=== PATIENT | male | born 1985 | race Caucasian/White ===

== ENCOUNTER 2020-08-24 22:38 | Emergency (ER) | payer SELFPAY ==
[~2020-08-24] VITALS: Ht 180.3 cm; Wt 81.8 kg
[2020-08-25 02:12] VITALS: BP 115/72
--- NOTE | 2020-08-25 03:23 | RAD ---
Three-view left ankle and 2 views os calcis dated 08/25/2020. No comparison available. CLINICAL INDICATION: Pain. FINDINGS: 3 views of left ankle and 2 views os calcis show deformity of the calcaneus with partial fusion of po sterior subtalar joint. There is some radiolucent defects within the calcaneal tuberosity the probabl y related to prior surgery. No bone destruction. Marked degenerative change of the subtalar joints th roughout. There is mild degenerative change of the tibiotalar joint. The distal tibia and fibular intact. No ev idence of fracture. No osteochondral defect of the talar dome. IMPRESSION: 1. Deformity of the calcaneus with partial fusion of the posterior subtalar joint, likely related to prior surgery and subtalar joint effusion. Correlate clinically. 2. No evidence of fracture or acute findings. 3. Degenerative changes as above. Electronically signed by: Lyle Hunt MD (08/25/2020 3:21 AM) CAT
--- NOTE | 2020-08-25 04:42 | PHYS DOC ---
General Adult EDM: Chief Complaint: FOOT INJURY PAIN HPI: HPI: 35-year-old male past medical history significant for left achilles tendon injury with left calcaneal fracture after patient fell from 2 stories in 2014 (required 2 surgeries w/hardware and hardware removal), presents the ED with complaints of left heel pain after pt was in his bathroom, slipped and either hit his heel on toilet basin or the tub. He is able to bear weight on the front part of his foot but given prior injury wanted to be assessed for repeat fracture. Denies any alcohol or intoxication. Did not hit his head or lose consciousness. Does not take any routine medications. Is here with his girlfriend who consents to her knowledge of his medical information. Review of Systems: Review of Systems: Constitutional: Denies fever or chills. [] Eyes: Denies change in visual acuity. [] HENT: Denies nasal congestion or sore throat. [] Respiratory: Denies cough or shortness of breath. [] Cardiovascular: Denies chest pain or edema. [] GI: Denies abdominal pain, nausea, vomiting, : Denies saddle anesthesia, urine or bowel retention or incontinence Musculoskeletal: Denies back pain or CVA tenderness Integument: Denies rash or diaphoresis Neurologic: Denies headache, neck pain, focal weakness or sensory changes. [] Psychiatric: Denies depression or anxiety. [] Heart Score: C/O Chest Pain: No Risk Factors: Risk Factors: DM, Current or recent (<one month) smoker, HTN, HLP, family history of CAD, obesity. Risk Scores: Score 0 - 3: 2.5% MACE over next 6 weeks - Discharge Home Score 4 - 6: 20.3% MACE over next 6 weeks - Admit for Clinical Observation Score 7 - 10: 72.7% MACE over next 6 weeks - Early Invasive Strategies Physical Exam: PE: Constitutional: Well developed, well nourished, no acute distress, non-toxic appearance. HENT: Normocephalic, atraumatic, Eyes: EOMI, conjunctiva normal, no discharge. Neck: Normal range of motion, supple, Cardiovascular: S1/2 present, regular rhythm Lungs & Thorax: Speaking in full sentences, bilateral equal chest rise, no tachypnea or increased work of breathing Skin: Warm, dry, Back: No midline tenderness or pain Extremities: No tenderness, no cyanosis, no lower extremity edema-no focal swelling or deformity Neurologic: Alert and oriented X 3, normal motor function, normal sensory function, no focal deficits noted, pain over posterior heel with bunion/hard dry built up skin tear (1x1cm) with no abrasion/bleeding or skin break, patient's foot stuck in plantar flexion, pain worsens with dorsiflexion, no pain over fibular head, knee or hip, bilateral distal pulses intact, Psychologic: Affect normal, judgement normal, mood normal. [] EKG: EKG: [] Radiology/Procedures: Radiology/Procedures: []IMAGING REPORT Signed PATIENT: MARIANNE MCGHEE ACCOUNT: [id number] : 1985 LOCATION: ER AGE: 35 SEX: M EXAM STATUS: REG ER ORD. PHYSICIAN: WOLF VELARDE DO REASON: heel pain s/p blun tuinjry PROCEDURE: CALCANEUS LEFT Three-view left ankle and 2 views os calcis dated 08/25/2020. No comparison available. CLINICAL INDICATION: Pain. FINDINGS: 3 views of left ankle and 2 views os calcis show deformity of the calcaneus with partial fusion of posterior subtalar joint. There is some radiolucent defects within the calcaneal tuberosity the probably related to prior surgery. No bone destruction. Marked degenerative change of the subtalar joints throughout. There is mild degenerative change of the tibiotalar joint. The distal tibia and fibular intact. No evidence of fracture. No osteochondral defect of the talar dome. IMPRESSION: 1. Deformity of the calcaneus with partial fusion of the posterior subtalar joint, likely related to prior surgery and subtalar joint effusion. Correlate clinically. 2. No evidence of fracture or acute findings. 3. Degenerative changes as above. Electronically signed by: Lyle Hunt MD (08/25/2020 3:21 AM) [facility] DICTATED and SIGNED BY: LYLE HUNT MD DATE: 08/25/20 [id number] Course & Med Decision Making: Course & Med Decision Making Pertinent Labs and Imaging studies reviewed. (See chart for details) Lengthy ED stay due to high volume in ED, acuity of critical pts and ED staffing. Concern for blunt injury to the left posterior heel, with no skin break or signs of trauma. No deformity. Patient explains his surgery required hardware to refuse his calcaneus and they had to shorten his Achilles tendon and reattach it (last surgery was 2014). Patient not in any significant distress. Recommend repeat imaging if pain should persist. Splint and crutches offered, patient declined-states he is able to bear weight and walk on his left toes. RICE instructions and [id number] analgesia recommended. Patient reports range of motion is at baseline prior to blunt injury earlier tonight-is unable to completely dorsiflex his foot, per parents plantarflexion. Will discharge home with strict ED return precautions were given for severe pain, neurologic deficits, skin color changes or repeat injury. Encouraged urgent outpatient follow-up with PMD and orthopedic surgery for definitive management. Life- threatening processes were considered but are low suspicion at this time, given history, physical exam and ED workup. Pt was educated on all prescription medications and adverse effects. All patient's questions were answered and pt was stable at time of discharge. Life/limb-threatening differential includes but is not limited to, avascular necrosis, septic arthritis, malignancy, compartment syndrome, fracture/ligamentous injury/overuse, decompression sickness, seronegative spondyloarthropathies, trauma including dislocation/fracture, Lyme disease, lupus, arthritis differentials, gout/pseudogout or decompression sickness. I spoken with the patient and her caregivers. I explained the patient's condition, diagnoses and treatment plan based on the information available to me at this time. I have answered the patient and her caregiver's questions and addressed any concerns. The patient and her caregivers have a good understanding of patient's diagnosis, condition and treatment plan as can be expected at this point. Vital signs have been stable. Patient's condition is stable and appropriate for discharge from the emergency department. Patient will pursue further outpatient evaluation with primary care physician or other designated or consulting physician as outlined in the discharge instructions. The patient and/or caregivers are agreeable to this plan of care and follow-up instructions have been explained in detail. The patient and/or caregivers have received these instructions in written form and have expressed an understanding of the discharge instructions. The patient and/or caregivers are aware that any significant change of condition or worsening of symptoms should prompt immediate return to this or the closest emergency department or call to Shawn Yang Disclaimer: Yang Disclaimer: This electronic medical record was generated, in whole or in part, using a voice recognition dictation system. Departure Departure Impression: Primary Impression: Pain of left heel Disposition: HOME / SELF CARE / HOMELESS Condition: STABLE Referrals: NO PCP (PCP) Follow-up with your primary care physician or FOLLOW UP WITH FAMILY MEDICINE: Family Medicine Address: [address] [place] [address] Patient Instructions: Ankle Pain, RICE - Routine Care for Injuries Additional Instructions: FOLLOW UP WITH ORTHOPEDICS: Orthopaedic Sports Medicine Orthopaedic Surgery [facility] Orthopedics Address: [address], [address] [place] [address] EMERGENCY DEPARTMENT GENERAL DISCHARGE INSTRUCTIONS Thank you for coming to [facility] Emergency Department (ED) today and trusting us with you care. We trust that you had a positive experience in our Emergency Department. If you wish to speak to the department management, you may call the Director at [phone]. YOUR FOLLOW UP INSTRUCTIONS ARE FOLLOWS: 1. Do you have a private Doctor? If you do not have a private doctor, please ask for a resource list of physicians or clinics that may be able to assist you with follow up care. 2. The Emergency Physicain has interpreted your x-rays. The X-Ray specialist will also review them. If there is a change in the findings, you will be notified in 48 hours when at all possible. 3. A lab test or culture has been done, your results will be reviewed and you will be notified if you need a change in treatment. ADDITIONAL INSTRUCTIONS AND INFORMATION: 1. Your care today has been supervised by a physician who is specially trained in emergency care. Many problems require more than one evaluation for a complete diagnosis and treatment. We recommend that you schedule your follow up appointment as recommended to ensure complete treatment of you illness or injury. If you are unable to obtain follow up care and continue to have a problem, or if your condition worsens, we recommend that you return to the ED. 2. We are not able to safely determine your condition over the phone nor are we able to give sound medical advice over the phone. For these safety reasons, if you call for medical advice we will ask you to come to the ED for further evaluation. 3. If you have any questions regarding these discharge instructions please call the ED at [phone]. SAFETY INFORMATION: In the interest of safety, wellness, and injury prevention; we encourage you to wear your sealbelt, if you smoke; quite smoking, and we encourage family to use a protective helmet for bicycling and other sporting events that present an increased risk for head injury. IF YOUR SYMPTOMS WORSEN OR NEW SYMPTOMS DEVELOP, OR YOU HAVE CONCERNS ABOUT YOUR CONDITION; OR IF YOUR CONDITION WORSENS WHILE YOU ARE WAITING FOR YOUR FOLLOW UP APPOINTMENT; EITHER CONTACT YOUR PRIMARY CARE DOCTOR, THE PHYSICIAN WHOSE NAME AND NUMBER YOU WERE GIVEN, OR RETURN TO THE ED IMMEDIATELY. [facility] DO Aug 25, 2020 04:42
== END 2020-08-25 04:46 | disposition home or self-care (01) ==
LOC: ER 22:38
DX: M79.672 Pain in left foot (principal)
CPT/HCPCS: 73610; 73650; 99284

== ENCOUNTER 2020-11-02 13:20 | Emergency (ER) | payer SELFPAY ==
[~2020-11-02] VITALS: Ht 177.8 cm; Wt 75.0 kg
[2020-11-02 13:35] VITALS: BP 137/82
[2020-11-02] MEDS ORDERED: MORPHINE SULFATE 4 MG/ML INJ. IV/SQ PRN (13:45)
[2020-11-02 14:20] LABS: BASO # 0.1 x10^3/uL (0.0-0.2); BASO % 1 % (0-3); EOS # 0.1 x10^3/uL (0.0-0.7); EOS % 1 % (0-3); HEMATOCRIT 40.4 % (39.0-53.0); HEMOGLOBIN 13.8 g/dL (13.0-17.5); LYMPH # 2.3 x10^3/uL (1.0-4.8); LYMPH % 20 % (24-48); MEAN CORPUSCULAR HEMOGLOBIN 31 pg (25-35); MEAN CORPUSCULAR HGB CONC 34 g/dL (31-37); MEAN CORPUSCULAR VOLUME 91 fL (79-100); MONO # 0.9 x10^3/uL (0.0-1.1); MONO % 7 % (0-9); NEUT # 8.6 x10^3/uL (1.8-7.7); NEUT % 72 % (31-73); PLATELET COUNT 274 x10^3/uL (140-400); RED BLOOD COUNT 4.45 x10^6/uL (4.30-5.70); RED CELL DISTRIBUTION WIDTH 13.6 % (11.5-14.5)
--- NOTE | 2020-11-02 14:24 | RAD ---
EXAMINATION: XR FOOT_LEFT 3 VIEWS CLINICAL HISTORY: pain redness in heel region, hx of surgery on heel/achilles TECHNIQUE: XR FOOT_LEFT 3 VIEWS Number of Images/Views: 3 COMPARISON: None FINDINGS: Postoperative changes in the calcaneus. Subtalar degenerative changes. Pes planus. No acute fracture. No focal soft tissue swelling. IMPRESSION: Postoperative and degenerative changes in the hindfoot as described. Electronically signed by: Satya Rosa DO (11/02/2020 2:22 PM) BRANDEN
[2020-11-02 14:32] LABS: CALCIUM 8.9 mg/dL (8.5-10.1); CREATININE 1.1 mg/dL (0.7-1.3); GFR 75.3
[2020-11-02 14:38] LABS: ALBUMIN 3.8 g/dL (3.4-5.0); ALBUMIN/GLOBULIN RATIO 1.2 (1.0-1.7); TOTAL BILIRUBIN 0.3 mg/dL (0.2-1.0); TOTAL PROTEIN 6.9 g/dL (6.4-8.2)
[2020-11-02] MEDS ORDERED: DICL50TA2 PO (15:45)
[2020-11-02] MEDS ORDERED: CEPH500T PO (15:45)
[2020-11-02] MEDS ORDERED: SULF1TAB24 PO (15:45)
--- NOTE | 2020-11-02 15:46 | PHYS DOC ---
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 Patient states he had hardware placed in the left foot then later the hardware was r emoved after he developed osteomyelitis 2015. Patient states since this morning he has noted some redness around the left heel. He is complaining of 10 out of 10 heel pain radiating to the Achilles tendon. Patient denies any injuries. States the pain is worse on touching the heel. Denies any fever. 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 [] Eyes: Denies change in visual acuity. [] HENT: Denies nasal congestion or sore throat. [] Respiratory: Denies cough or shortness of breath. [] Cardiovascular: Denies chest pain or edema. [] GI: Denies abdominal pain, nausea, vomiting, bloody stools or diarrhea. [] : Denies dysuria. [] Musculoskeletal: Denies back pain or joint pain. [] Integument: Reports left heel pain radiating to the Achilles tendon Neurologic: Denies headache, focal weakness or sensory changes. [] Psychiatric: Denies depression or anxiety. 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 [] HENT: Normocephalic, atraumatic, bilateral external ears normal, oropharynx moist, no oral exudates, nose normal. [] Eyes: PERRLA, EOMI, conjunctiva normal, no discharge. [] Neck: Normal range of motion, no tenderness, supple, no stridor. [] Cardiovascular:Heart rate regular rhythm, no murmur [] Lungs & Thorax: Bilateral breath sounds clear to auscultation [] Abdomen: Bowel sounds normal, soft, no tenderness, no masses, no pulsatile masses. [] Skin: See extremity Back: No tenderness, no CVA tenderness. [] Extremities: Left lower extremity with no obvious deformity. Left heel noted for from the region consistent with calluses. There is an old healed surgical incision noted on the medial left heel. Just below the surgical incision there is some erythema concerning for superficial cellulitis. The area is tender to touch over. Patient able to flex and extend the left foot with no difficulties. Negative Louise sign. +2 left pedal pulse. Cap refill less than 2 seconds to left toes Neurologic: Alert and oriented X 3, normal motor function, normal sensory function, no focal deficits noted. [] Psychologic: Affect normal, judgement normal, mood normal. [] (KEYLA SHAH M STEM PROCESSING MACHINE OPERATOR) Current Patient Data: Labs: Laboratory Tests Test 11/02/20 14:10 White Blood Count 12.0 x10^3/uL (4.0-11.0) H Red Blood Count 4.45 x10^6/uL (4.30-5.70) Hemoglobin 13.8 g/dL (13.0-17.5) Hematocrit 40.4 % (39.0-53.0) Mean Corpuscular Volume 91 fL (79-100) Mean Corpuscular Hemoglobin 31 pg (25-35) Mean Corpuscular Hemoglobin Concent 34 g/dL (31-37) Red Cell Distribution Width 13.6 % (11.5-14.5) Platelet Count 274 x10^3/uL (140-400) Neutrophils (%) (Auto) 72 % (31-73) Lymphocytes (%) (Auto) 20 % (24-48) L Monocytes (%) (Auto) 7 % (0-9) Eosinophils (%) (Auto) 1 % (0-3) Basophils (%) (Auto) 1 % (0-3) Neutrophils # (Auto) 8.6 x10^3/uL (1.8-7.7) H Lymphocytes # (Auto) 2.3 x10^3/uL (1.0-4.8) Monocytes # (Auto) 0.9 x10^3/uL (0.0-1.1) Eosinophils # (Auto) 0.1 x10^3/uL (0.0-0.7) Basophils # (Auto) 0.1 x10^3/uL (0.0-0.2) Sodium Level 140 mmol/L (136-145) Potassium Level 4.0 mmol/L (3.5-5.1) Chloride Level 103 mmol/L (98-107) Carbon Dioxide Level 30 mmol/L (21-32) Anion Gap 7 (6-14) Blood Urea Nitrogen 15 mg/dL (8-26) Creatinine 1.1 mg/dL (0.7-1.3) Estimated GFR (Cockcroft-Gault) 75.3 BUN/Creatinine Ratio 14 (6-20) Glucose Level 64 mg/dL (70-99) L Lactic Acid Level 1.3 mmol/L (0.4-2.0) Calcium Level 8.9 mg/dL (8.5-10.1) Total Bilirubin 0.3 mg/dL (0.2-1.0) Aspartate Amino Transferase (AST) 26 U/L (15-37) Alanine Aminotransferase (ALT) 26 U/L (16-63) Alkaline Phosphatase 95 U/L (46-116) Total Protein 6.9 g/dL (6.4-8.2) Albumin 3.8 g/dL (3.4-5.0) Albumin/Globulin Ratio 1.2 (1.0-1.7) Laboratory Tests 11/02/20 14:10 Laboratory Tests 11/02/20 14:10 Vital Signs: Vital Signs Date Time Temp Pulse Resp B/P (MAP) Pulse Ox O2 Delivery O2 Flow Rate FiO2 11/02/20 13:35 97.6 77 16 137/82 (100) 99 Room Air 97.6 (KEYLA SHAH APRN) EKG: EKG: [] (KEYLA SHAH APRN) Radiology/Procedures: Radiology/Procedures: []PROCEDURE: FOOT LEFT 3V EXAMINATION: XR FOOT_LEFT 3 VIEWS CLINICAL HISTORY: pain redness in heel region, hx of surgery on heel/achilles TECHNIQUE: XR FOOT_LEFT 3 VIEWS Number of Images/Views: 3 COMPARISON: None FINDINGS: Postoperative changes in the calcaneus. Subtalar degenerative changes. Pes planus. No acute fracture. No focal soft tissue swelling. IMPRESSION: Postoperative and degenerative changes in the hindfoot as described. Electronically signed by: Satya Norris DO (11/02/2020 2:22 PM) [facility] DICTATED and SIGNED BY: SATYA NORRIS DO DATE: 11/02/20 [id number] 0 (KEYLA SHAH APRN) Course & Med Decision Making: Course & Med Decision Making Pertinent Labs and Imaging studies reviewed. (See chart for details) This is a 35-year-old male patient presenting to the ED today complaining of left heel pain. Patient has previous left heel surgery in 2014. The area appears to have superficial cellulitis. CBC with a WBC of 12.0, CMP and lactic with no acute findings. Left foot x-rays are negative for any acute findings Patient was started on Rocephin in the ED. Discharged on Bactrim and cephalexin. Follow-up with orthopedic doctor. Patient was given his paperwork which included the Bactrim cephalexin and diclofenac. He states he wants something stronger for pain specifically oxycodone 10/325 mg. He states he used to be on this medicine for chronic pain to his heel and also use to follow-up with the pain clinic. Informed patient infection he has is very superficial and I do not see any indication for narcotic pain medicine. I recommended he follows up with the orthopedic doctor. He stood up and left (KEYLA SHAH APRN) Course & Med Decision Making I oversaw on the above date of service of this patient. This patient was evaluated, examined, treated, and dispositioned from the emergency department by the mid-level practitioner. Although I was working at the time and available for consultation, no assistance was requested and I did not see or immediately direct the care of this patient. I reviewed note and agree to findings, plan of care, and disposition as stated. Electronically signed, Sania Oscar DO (SANIA OSCAR DO) Yang Disclaimer: Yang Disclaimer: This electronic medical record was generated, in whole or in part, using a voice recognition dictation system. (KEYLA SHAH APRN) Departure Departure Impression: Primary Impression: Cellulitis of foot, left Disposition: HOME / SELF CARE / HOMELESS Condition: STABLE Referrals: NO PCP (PCP) MARCIAL SALDANA DO Follow up in 1 week Patient Instructions: Cellulitis, [id number] Additional Instructions: You were evaluated in the emergency room, your left foot x-rays is negative for osteomyelitis. You could have early cellulitis to your foot. Please take the prescribed antibiotics until completed. Please follow-up with the orthopedic doctor provided or your own doctor in 1 week. Scripts Diclofenac Potassium (DICLOFENAC POTASSIUM) 50 Mg Tablet 1 TAB PO BID, #60 TAB 1 Refill Prov: KEYLA SHAH APRN 11/02/20 Sulfamethoxazole/Trimethoprim (BACTRIM DS TABLET) 1 Each Tablet 1 TAB PO BID for 10 Days, #20 TAB 0 Refills Prov: KEYLA SHAH APRN 11/02/20 Cephalexin (CEPHALEXIN) 500 Mg Tablet 1 TAB PO BID, #20 TAB Prov: KEYLA SHAH APRN 11/02/20 KEYLA SHAH APRN Nov 02, 2020 15:46 SANIA OSCAR DO Nov 03, 2020 07:16
[2020-11-02] MEDS ORDERED: cefTRIAXone IV Push 1 GM VIAL. IVP ONE (16:00)
[2020-11-02] MEDS ORDERED: DIPH,PERTUSS(ACELL),TET VAC/PF 0.5 ML SYRINGE. VAX IM ONE (16:00)
--- NOTE | 2020-11-02 17:10 | NUR ---
Nurse practitoner asked me to ask Plastic Tubing Insulation Supervisor Arcenio Huang to get wheelchair and escort this patient out of the room and to the waiting room. Arceino went into the patients room to assist with escort and the patient refused assistance. Arcenio then came out and told Nurse practitioner Vikki that patient refused assistance.
== END 2020-11-02 16:45 | disposition home or self-care (01) ==
LOC: ER 13:20
DX: L03.116 Cellulitis of left lower limb (principal); F17.200 Nicotine dependence, unspecified, uncomplicated
CPT/HCPCS: 36415; 73630; 80053; 83605; 84145; 85025; 87040; 90471; 90715; 96374; 96375; 99284; J0696; J2270